=== PATIENT | female | born 1950 | race Caucasian/White ===

== ENCOUNTER 2018-06-27 14:35 | Outpatient (CLI) | payer MEDICARE, BC ==
--- NOTE | 2018-06-28 08:43 | Mammography Report ---
Reason: ENCOUNTER FOR SCREENING MAMMOGRAM FOR MALIGNANT NE Procedure Date: 06/27/2018 Accession Number: [id number] / [id number] Procedure: HOLGER - Screening Mammo w/Maximino CPT Code: FULL RESULT: EXAM: Screening Mammo w/Maximino DATE: 06/27/2018 3:01 PM CLINICAL HISTORY: Personal history of undisclosed cancer status post radiation and chemotherapy. Family history breast cancer in mother at age 91 and a great aunt in her 70s. Routine screening. TECHNIQUE: Bilateral CC and MLO views were obtained. COMPARISON: 06/15/2016 through 01/14/2013 FINDINGS: The breasts demonstrate heterogeneously dense fibroglandular parenchyma bilaterally. Bilateral breasts: There are no suspicious masses, calcifications or areas of distortion. IMPRESSION: Negative examination RECOMMENDATION: Routine annual screening unless otherwise clinically indicated. BI-RADS CATEGORY 1: Negative STANDARD QUALIFYING STATEMENTS: 1. This examination was not reviewed with the aid of Computer-Aided Detection (CAD). 2. A negative or benign imaging report should not preclude biopsy if clinically suspicious findings are present. 3. Dense breasts may obscure an underlying neoplasm. 4. This examination was reviewed with the aid of 3D breast imaging (tomosynthesis).
== END 2018-06-27 14:36 | disposition home or self-care (01) ==
LOC: DI 14:35
PROVIDERS: ATTEND Family Medicine
DX: Z12.31 Encounter for screening mammogram for malignant neoplasm of breast (principal); Z08 Encounter for follow-up examination after completed treatment for malignant neoplasm; Z85.3 Personal history of malignant neoplasm of breast; Z80.3 Family history of malignant neoplasm of breast
CPT/HCPCS: 77063; 77067

== ENCOUNTER 2019-05-20 10:30 | Outpatient (CLI) | payer MEDICARE, BC | END 2019-05-20 23:59 | disposition home or self-care (01) | LOC: LAB.R 10:30 | PROVIDERS: ATTEND Nurse Practitioner Obstetrics & Gynecology | DX: R39.15 Urgency of urination (principal) | CPT/HCPCS: 87077; 87086; 87181 ==

== ENCOUNTER 2019-05-31 07:00 | Outpatient (CLI) | payer MEDICARE, BC | END 2019-05-31 23:59 | disposition home or self-care (01) | LOC: LAB.R 07:00 | PROVIDERS: ATTEND Nurse Practitioner Obstetrics & Gynecology | DX: R39.15 Urgency of urination (principal); N39.0 Urinary tract infection, site not specified | CPT/HCPCS: 87086 ==

== ENCOUNTER 2019-12-11 07:00 | Outpatient (CLI) | payer MEDICARE, BC | END 2019-12-11 23:59 | disposition home or self-care (01) | LOC: LAB.R 07:00 | PROVIDERS: ATTEND Nurse Practitioner Obstetrics & Gynecology | DX: R10.30 Lower abdominal pain, unspecified (principal) | CPT/HCPCS: 87086 ==

== ENCOUNTER 2019-12-26 09:55 | Day surgery (SDC) | payer MEDICARE, BC ==
[2019-12-26] MEDS ORDERED: fentaNYL 250 MCG/5 ML VIAL IVP ONE (09:56)
[2019-12-26] MEDS ORDERED: MIDAZOLAM 2 MG/2 ML VIAL IVP ONE (09:56)
[2019-12-26] MEDS ORDERED: LACTATED RINGERS 1,000 ML IV ONE ×2 (10:22→12:51)
[2019-12-26 13:18] VITALS: BP 96/51
== END 2019-12-26 09:56 | disposition home or self-care (01) ==
LOC: SDS 09:55
PROVIDERS: ATTEND Surgery
DX: Z12.11 Encounter for screening for malignant neoplasm of colon (principal); Z85.048 Personal history of other malignant neoplasm of rectum, rectosigmoid junction, and anus; K57.30 Diverticulosis of large intestine without perforation or abscess without bleeding; K64.8 Other hemorrhoids; Z80.0 Family history of malignant neoplasm of digestive organs
CPT/HCPCS: G0105; J3010; J7120

== ENCOUNTER 2020-01-10 14:58 | Outpatient (CLI) | payer MEDICARE, BC ==
--- NOTE | 2020-01-11 17:33 | Ultrasound Report ---
PROCEDURE: Pelvic w/Transvaginal INDICATIONS: CHRONIC PELVIC PAIN TECHNIQUE: Real-time scanning was performed of the pelvic organs, with image documentation. Additional endovagi nal scanning was necessary due to incomplete visualization of the adnexal and endometrial structures by transabdominal scanning. COMPARISON: None. FINDINGS: Transabdominal scanning: Limited scanning through the kidneys shows no hydronephrosis. No pathologi c free abdominal or pelvic fluid. Endovaginal scanning: Uterus: Uterus is normal in size at 6.3 x 3.2 x 3.8 cm. The endometrium measures 2 mm in combined t hickness. Fluid is seen within the endometrial canal in the cervical canal. Nabothian cysts are pres ent. A subserosal fibroid in the posterior midline uterus measures 1.4 x 1.0 x 1.8 cm. Ovaries: The right ovary measures 1.1 x 1 x 1.2 cm with a volume of 0.7 mL. The left ovary measures 1.6 x 1.2 x 1.3 cm with a volume of 1.1 mL. IMPRESSION: 1. Atrophic endometrial stripe with a small amount of nonspecific fluid and echogenic material in th e endometrial and endocervical canals, which may represent blood products. 2. Posterior uterine subserosal fibroid measures up to 1.8 cm in maximum dimension. Reviewed by: Scotty Perez MD on 01/11/2020 5:32 PM PDT Approved by: Scotty Perez MD on 01/11/2020 5:32 PM PDT Station ID: [id number]
== END 2020-01-10 14:59 | disposition home or self-care (01) ==
LOC: DI 14:58
PROVIDERS: ATTEND Nurse Practitioner Obstetrics & Gynecology
DX: R10.2 Pelvic and perineal pain (principal); G89.29 Other chronic pain; D25.2 Subserosal leiomyoma of uterus
CPT/HCPCS: 76830; 76856

== ENCOUNTER 2020-01-24 10:22 | Outpatient (CLI) | payer MEDICARE, BC ==
--- NOTE | 2020-01-27 16:12 | Mammography Report ---
BILATERAL DIGITAL SCREENING MAMMOGRAM 3D/2D: 01/24/2020 CLINICAL: Routine screening. Mother with postmenopausal breast cancer. Comparison is made to exams dated: 06/27/2018 [facility], [facility], 05/13/2015 ultrasound, and 01/28/2013 ultrasound - [facility]. The tissue of both breasts is heterogeneously dense. This may lower the sensitivity of mammography. No significant masses, calcifications, or other findings are seen in either breast. There has been no significant interval change. IMPRESSION: NEGATIVE There is no mammographic evidence of malignancy. A 1 year screening mammogram is recommended. This exam was interpreted at Station ID: [id number]. NOTE: For mammograms, a report in lay terms will be sent to the patient. Approximately 15% of breast malignancies will not be visualized mammographically. In the management of a palpable breast mass, a negative mammogram must not discourage biopsy of a clinically suspicious lesion. Electronically Signed By: Michael lares/marianne:01/24/2020 11:56:08 ACR BI-RADS Category 1: Negative 3341F PARENCHYMAL PATTERN: (D) - The breast(s) demonstrate(s) heterogeneously dense fibroglandular mariah greer. BI-RADS CATEGORY: (1) - 1 RECOMMENDATION: (ANNUAL) - Recommend routine annual screening mammography. [id number] 1 year screening LATERALITY: (B)
== END 2020-01-24 10:23 | disposition home or self-care (01) ==
LOC: DI 10:22
PROVIDERS: ATTEND Nurse Practitioner Obstetrics & Gynecology
DX: Z12.31 Encounter for screening mammogram for malignant neoplasm of breast (principal); Z80.3 Family history of malignant neoplasm of breast
CPT/HCPCS: 77063; 77067

== ENCOUNTER 2021-12-20 04:51 | Emergency (ER) | payer MEDICARE, BC ==
--- NOTE | 2021-12-20 05:54 | ED Physician Documentation ---
History of Present Illness - Stated complaint Stated Complaint: FEMALE - Chief complaint Chief Complaint: Abd Pain - History obtained from History obtained from: Patient - History of Present Illness Timing: How many weeks ago (1) Pain level now: 1 Improved by: no ameliorating factors Worsened by: no exacerbating factors - Additonal information Additional information: patient's chief concern is bowel obstruction. She says she has not had a bowel movement for the past week. Denies nausea, vomiting, fever. She has h/o anal cancer treated with radiation and chemotherapy (diagnosis 2013). She denies any pain, including abdominal pain. Part of the reason for her concern at this time is that she is about to go on a trip and is concerned about whether it is safe to fly as well as whether travel is safe and appropriate at this time. She is also concerned due to small amount of BRBPR tonight that occurred shortly after she administered a Fleet's enema. Review of Systems Constitutional: reports: Reviewed and negative Cardiac: reports: Reviewed and negative Respiratory: reports: Reviewed and negative GI: reports: Bloody / black stool (small amount BRBPR tonight). denies: Abdominal Pain, Abdominal Swelling, Nausea, Vomiting, Diarrhea PD PAST MEDICAL HISTORY - Past Medical History Past Medical History: Yes GI: Other (anal cancer) Other Past Medical History: rectal CA. hemerroids - Past Surgical History Past Surgical History: Yes General: Bowel surgery, Colonoscopy - Present Medications Home Medications: Ambulatory Orders Medication Instructions Recorded Confirmed Estradiol 0.05 mg Patch [Climara 0.375 mg [id number] DAILY 12/26/19 12/20/21 0.05 mg] Progesterone, Micronized 100 mg PO DAILY 12/26/19 12/20/21 [Progesterone] - Allergies Allergies/Adverse Reactions: Allergies Allergy/AdvReac Type Severity Reaction Status Date / Time Iodinated Contrast Media Allergy Anaphylaxis Verified 12/20/21 05:06 - Social History Does the pt smoke?: No Smoking Status: Never smoker Does the pt drink ETOH?: No Does the pt have substance abuse?: No - Immunizations Immunizations are current?: Yes PD ED PE NORMAL - Vitals Vital signs reviewed: Yes - General General: Alert and oriented X 3, No acute distress, Well developed/nourished - HEENT HEENT: Moist mucous membranes - Cardiac Cardiac: RRR, No murmur - Respiratory Respiratory: No respiratory distress, Clear bilaterally - Abdomen Abdomen: Normal bowel sounds, Soft, Non tender, Non distended Results - Vitals Vitals: Oxygen O2 Source Room air - Labs Labs: Laboratory Tests 12/20/21 12/20/21 06:45 06:45 WBC 3.5 L RBC 3.73 L Hgb 12.2 Hct 34.8 L MCV 93.3 MCH 32.7 H MCHC 35.1 RDW 12.4 Plt Count 244 MPV 8.1 Neut # (Auto) 2.2 Lymph # (Auto) 0.7 L [place] # (Auto) 0.4 Eos # (Auto) 0.1 Baso # (Auto) 0.0 Absolute Nucleated RBC 0.00 Nucleated RBC % 0.0 Sodium 128 L Potassium 3.9 Chloride 94 L Carbon Dioxide 24 Anion Gap 10.0 BUN < 5 L Creatinine 0.6 Estimated GFR (MDRD) 99 Glucose 101 H Calcium 9.4 Total Bilirubin 1.4 H AST 23 ALT 21 Alkaline Phosphatase 41 L Total Protein 6.4 L Albumin 4.7 Globulin 1.7 L Albumin/Globulin Ratio 2.8 H Lipase 37 - Rads (name of study) acute abdominal series (xrays) Radiology: Prelim report reviewed, See rad report PD MEDICAL DECISION MAKING - ED course Complexity details: reviewed results, re-evaluated patient, considered differential, d/w patient ED course: given lack of abdominal distention, lack of abdominal pain, absence of n/v, SBO is unlikely and thus plain-film xrays peformed instead of CT A/P. These xrays do not suggest bowel obstruction pattern. Her blood test results have no concerning findings, with incidental note of mild leukopenia (3.5 WBC), hyponatremia (128), and mild hyperbilirubinemia (1.4). She is in NAD and is reassured when we discuss these results. Cause of her symptoms is unclear at this time. I do not have cause for her to avoid travel, including airplane flights, at this time and we discussed this. Of course, if her symptoms worsen in any significant way, or if she develops new/concerning signs/symptoms (such as fever, vomiting, abdominal pain), she should avoid flying and travel until she is reevaluated medically and cleared to do so (or go to nearest ED if she is already on her trip). Departure - Departure Disposition: 01 Home, Self Care Clinical Impression: Abdominal pain Qualifiers: Abdominal location: generalized Qualified Code(s): R10.84 - Generalized abdominal pain Condition: Good Instructions: ED Abdominal Pain Female Non-Specific Abdominal Pain Follow-Up: ANANDA MAGUIRE ARNP [Primary Care Provider] - Comments: There are no concerning findings on tonight's tests. The xrays do not suggest a bowel obstruction. The blood tests have some minor abnormalities, none of which would be causing your symptoms. Your white blood cell count is mildly below normal as is your sodium. Follow up with your primary care provider within 1-2 weeks; they might recommend recheck of some of these labs Discharge Date/Time: 12/20/21 08:58
[2021-12-20] MEDS ORDERED: SODIUM CHLORIDE 0.9% 1,000 ML IV STA (06:33)
[2021-12-20 06:52] LABS: BASOPHILS % (AUTO) 0.9 %; EOSINOPHILS # (AUTO) 0.1 10^3/uL (0.0-0.7); EOSINOPHILS % (AUTO) 3.7 %; HCT - HEMATOCRIT 34.8 % (37.0-47.0); HGB - HEMOGLOBIN 12.2 g/dL (12.0-16.0); LYMPHOCYTES # (AUTO) 0.7 10^3/uL (1.5-3.5); MEAN CORPUSCULAR HEMOGLOBIN 32.7 pg (27.0-31.0); MEAN CORPUSCULAR HGB CONC 35.1 g/dL (32.0-36.0); MEAN CORPUSCULAR VOLUME 93.3 fL (81.0-99.0); MEAN PLATELET VOLUME 8.1 fL (7.9-10.8); MONOCYTES # (AUTO) 0.4 10^3/uL (0.0-1.0); MONOCYTES % (AUTO) 11.1 %; NEUTROPHILS # (AUTO) 2.2 10^3/uL (1.5-6.6); PLT - PLATELET COUNT 244 10^3/uL (130-450); RED BLOOD COUNT 3.73 10^6/uL (4.20-5.40); RED CELL DISTRIBUTION WIDTH 12.4 % (12.0-15.0); WHITE BLOOD COUNT 3.5 x10^3/uL (4.8-10.8)
[2021-12-20 06:53] VITALS: BP 153/79
[2021-12-20 07:11] LABS: ALBUMIN 4.7 g/dL (3.2-5.5); ALBUMIN/GLOBULIN RATIO 2.8 (1.0-2.2); ALKALINE PHOSPHATASE 41 IU/L (42-121); ALT ALANINE AMINOTRANSFERASE 21 IU/L (10-60); AST ASPARTATE AMINOTRANSFERASE 23 IU/L (10-42); BILIRUBIN,TOTAL 1.4 mg/dL (0.2-1.0); BUN - BLOOD UREA NITROGEN < 5 mg/dL (6-20); CALCIUM 9.4 mg/dL (8.5-10.3); CARBON DIOXIDE - CO2 24 mmol/L (21-32); CHLORIDE 94 mmol/L (101-111); CREATININE 0.6 mg/dL (0.4-1.0); GFR - MDRD 99 (>89); GLUCOSE 101 mg/dL (70-100); LIPASE 37 U/L (22-51); POTASSIUM 3.9 mmol/L (3.5-5.0); SODIUM 128 mmol/L (135-145); TOTAL PROTEIN 6.4 g/dL (6.7-8.2)
--- NOTE | 2021-12-20 08:44 | XRAY Report ---
PROCEDURE: Abdomen Acute INDICATIONS: abdominal discomfort TECHNIQUE: One view chest and two views of the abdomen were acquired. COMPARISON: None FINDINGS: Surgical changes and devices: None. Chest: Lungs are clear. Heart size is normal. No pleural effusions. No pneumoperitoneum. Abdomen: Bowel gas pattern is normal. No suspicious calcifications. Visualized solid organ contour s appear normal. Bones: No suspicious bony lesions. IMPRESSION: No acute process. Concordant with preliminary interpretation. Reviewed by: Ludivina Osborn MD on 12/20/2021 8:43 AM PDT Approved by: Ludivina Osborn MD on 12/20/2021 8:43 AM PDT Station ID: [id number]
== END 2021-12-20 08:58 | disposition home or self-care (01) ==
LOC: ED 04:51
DX: R10.84 Generalized abdominal pain (principal)
CPT/HCPCS: 36415; 80053; 83690; 85025; 99282; 99284

== ENCOUNTER 2022-03-07 12:17 | Outpatient (CLI) | payer MEDICARE, BC ==
[2022-03-07 12:39] LABS: BASOPHILS % (AUTO) 0.6 %; EOSINOPHILS # (AUTO) 0.1 10^3/uL (0.0-0.7); EOSINOPHILS % (AUTO) 2.1 %; HCT - HEMATOCRIT 36.6 % (37.0-47.0); HGB - HEMOGLOBIN 12.2 g/dL (12.0-16.0); LYMPHOCYTES # (AUTO) 1.1 10^3/uL (1.5-3.5); LYMPHOCYTES % (AUTO) 22.9 %; MEAN CORPUSCULAR HEMOGLOBIN 32.1 pg (27.0-31.0); MEAN CORPUSCULAR HGB CONC 33.3 g/dL (32.0-36.0); MEAN CORPUSCULAR VOLUME 96.3 fL (81.0-99.0); MONOCYTES # (AUTO) 0.5 10^3/uL (0.0-1.0); MONOCYTES % (AUTO) 10.2 %; PLT - PLATELET COUNT 241 10^3/uL (130-450); RED CELL DISTRIBUTION WIDTH 13.3 % (12.0-15.0); WHITE BLOOD COUNT 4.7 x10^3/uL (4.8-10.8)
[2022-03-07 13:10] LABS: THYROID STIMULATING HORMONE 2.04 uIU/mL (0.34-5.60)
[2022-03-07 13:16] LABS: FERRITIN 26.4 ng/mL (11.0-306.8)
== END 2022-03-07 12:18 | disposition home or self-care (01) ==
LOC: LAB 12:17
PROVIDERS: ATTEND Nurse Practitioner
DX: L65.9 Nonscarring hair loss, unspecified (principal)
CPT/HCPCS: 36415; 82728; 84443; 85025

== ENCOUNTER 2022-12-15 06:54 | Day surgery (SDC) | payer MEDICARE, BC ==
[2022-12-15] MEDS ORDERED: LACTATED RINGERS 1,000 ML IV ONE ×2 (07:02→10:48)
[2022-12-15 07:25] VITALS: O2SAT 100
--- NOTE | 2022-12-15 08:16 | ANESTHESIA ---
Pre-Anesthesia VS, & Labs - Diagnosis history of barretts and family history of colon cancer - Procedure EGD and colonoscopy Vital Signs: Temp Pulse Resp BP Pulse Ox O2 Flow Rate 36.7 C 73 16 133/66 H 100 12/15/22 07:06 12/15/22 07:06 12/15/22 07:06 12/15/22 07:06 12/15/22 07:06 Height: 5 ft 6 in Weight (kg): 57 kg Body Mass Index: 20.2 BMI Classification: Normal - NPO >8 hours - Is Patient ?: No Home Medications and Allergies Estradiol 0.05 mg Patch [Climara 0.05 mg] 0.375 mg [id number] DAILY 12/26/19 Progesterone, Micronized [Progesterone] 100 mg PO DAILY 12/26/19 Allergies/Adverse Reactions: Allergies Allergy/AdvReac Type Severity Reaction Status Date / Time Iodinated Contrast Media Allergy Anaphylaxis Verified 12/20/21 05:06 Anes History & Medical History - Anesthetic History Anesthesia Complications: reports: No previous complications - Medical History Cardiovascular: reports: None Pulmonary: reports: None Gastrointestinal: reports: None, Other Urinary: reports: None Neuro: reports: None Musculoskeletal: reports: None Endocrine/Autoimmune: reports: None Skin: reports: None Smoking Status: Former smoker (quit 40 years) Psychosocial: reports: No issues indicated History of Cancer?: No - Surgical History General: reports: Colonoscopy Exam General: Alert, Oriented x3, Cooperative, No acute distress Dental: WNL Mouth Openin Fingerbreadth Neck Mobility: Normal Mallampati classification: III Thyromental Distance: 4-6 cm Mental/Cognitive Status: Alert/Oriented X3, Normal for patient Plan Anesthesia Type: General, Total IV Consent for Procedure(s) Verified and Reviewed: Yes Code Status: Attempt Resuscitation ASA classification: 1-Healthy patient Is this case an emergency?: No
[2022-12-15] MEDS ORDERED: PROPOFOL 500 MG/50 ML 500 MG/50 ML VIAL ONE (08:41)
[2022-12-15] MEDS ORDERED: PROPOFOL 200 MG/20 ML VIAL IVP ONE (09:32)
[2022-12-15] MEDS ORDERED: LACTATED RINGERS 100 ML IV ONE (10:04)
[2022-12-15 11:09] VITALS: BP 132/86
--- NOTE | 2022-12-15 11:12 | ANESTHESIA POST OP EVALUATION ---
Anesthesia Post Eval - Post Anesthesia Eval Vitals: Last Vital Signs Temp 3.4 C L 12/15/22 11:02 Pulse 78 12/15/22 11:02 Resp 16 12/15/22 11:02 BP 132/86 H 12/15/22 11:02 Pulse Ox 100 12/15/22 11:02 O2 Flow Rate CV Function Including HR & BP: Stable Pain Control: Satisfactory Nausea & Vomiting: Negative Mental Status: Baseline Respiratory Status: Airway Patent Hydration Status: Satisfactory Anesthesia Complications: None
== END 2022-12-15 06:55 | disposition home or self-care (01) ==
LOC: SDS 06:54
PROVIDERS: ATTEND Surgery
DX: Z12.11 Encounter for screening for malignant neoplasm of colon (principal); Z13.810 Encounter for screening for upper gastrointestinal disorder; K44.9 Diaphragmatic hernia without obstruction or gangrene; Z80.0 Family history of malignant neoplasm of digestive organs; Z85.048 Personal history of other malignant neoplasm of rectum, rectosigmoid junction, and anus; Z86.010 Personal history of colon polyps; Z87.891 Personal history of nicotine dependence
CPT/HCPCS: 43239; G0105; J7120